=== PATIENT | male | born 1925 | race Caucasian/White ===

== ENCOUNTER 2016-09-21 16:58 | Inpatient (IN) | payer MEDICARE ==
[~2016-09-21] VITALS: Ht 177.8 cm; Wt 53.8 kg
[2016-09-21] VITALS: BP 103/85
--- NOTE | ~2016-09-21 | PR ---
[place], [place] PROGRESS NOTE NAME: [facility]IR[facility] BOGGS SR [id number] UNIT #: [id number] ROOM: [facility] DOCTOR: OPAL DURAN MD BIRTHDATE: [birth year] DOS: 09/23/2016 SUBJECTIVE: The patient is sitting up in bed. Denies any specific cardiac complaint. His daughter is on bedside. The patient denies any dizziness. No chest pain. No symptomatic palpitation. OBJECTIVE: VITAL SIGNS: Blood pressure 106/60, heart rate 60, respiratory rate of , temperature 97.4. NECK: Good upstroke, no bruit. HEART: S1, S2 with holosystolic murmur left lower sternal border. CHEST AND BACK: Mild kyphosis. LUNGS: Decreased air movement, but no wheezing or rales. ABDOMEN: Soft, nontender, present bowel sounds. EXTREMITIES: Lower extremities, no significant edema. LABORATORY DATA: White count 4.7, hemoglobin 10.2, potassium 3.8, creatinine 1.5, GFR is 42. ASSESSMENT AND PLAN: History of atrial fibrillation with evidence of early sick sinus syndrome that appeared to be so far asymptomatic. The patient recovered from the episode of following taking Lopressor, doing relatively well. Vital signs appeared to be stable. The patient did become bradycardic during the night, but blood pressure was stable throughout this episode. From the cardiac point of view, the patient can be transferred out of the unit, increase activity and consider rehab as an outpatient. I will be seeing the patient on p.r.n. basis or please recall if needed. OPAL DURAN MD CM:PNTRANS [id number] OPAL DURAN MD 09/23/162033 interface
--- NOTE | ~2016-09-21 | PR ---
[place], [place] PROGRESS NOTE NAME: SIRIA BOGGS SR [facility] #: [id number] UNIT #: [id number] ROOM: 409 DOCTOR: VANE HOFFMAN MD,PIERO BIRTHDATE: [birth year] DOS: 09/24/2016 PULMONARY PROGRESS NOTE SUBJECTIVE: The patient was seen and examined on 09/24/2016, has been noted awake and alert at this time. The patient was noted without any acute distress at this time. Coughing has been noted with intermittent sputum expectoration only scant amount, mostly noted chest congestion. Denies abdominal pain. The mental status has been noted much better since hospitalization for the patient today. OBJECTIVE: VITAL SIGNS: Normal temperature, respiratory rate 25, heart rate of 66, blood pressure 115/39. The pulse oxygen saturation 3 liters nasal cannula 97% saturation recorded. HEENT: Examination shows no acute change. NECK: Supple. CARDIOVASCULAR SYSTEM: S1, S2 audible. LUNGS: Decreased breath sounds still noted in the lungs bilaterally, scattered crackles, no wheezing. ABDOMEN: Soft, nontender. LABORATORY DATA: The culture of the sputum of the patient on shows light growth of Pseudomonas aeruginosa noted quite resistant to organism. The patient noted sensitive to the IV Zosyn and tobramycin, resistant to fluoroquinolones and other antibiotic. The BMP today: BUN 29, creatinine of 2.26. Albumin of 2.0. PT/INR was 1.8. CBC this morning, WBC count 3.5, hemoglobin 9.9, hematocrit 31.9 with a platelet count of 119,000. IMPRESSION: 1. The patient who has been currently noted with acute pneumonia, Pseudomonas aeruginosa with bilateral pleural fluids with second fluid overload, congestive heart failure of the patient. 2. End-stage renal failure, on hemodialysis. 3. Chronic anticoagulation with history of atrial fibrillation. 4. Leukopenia, most likely underlying acute infection. PLAN OF TREATMENT: Continuation of the current plan of management except adjustment of antibiotics based on the culture results. Discontinuation of the vancomycin and Levaquin. Continue the patient only on the IV Zosyn adjusted to the kidney functions. Usual care. Repeat chest x-ray of the patient to be done in the morning for the patient to assess the pleural fluid. Continue anticoagulation, maximize the Coumadin dose of the patient to achieve a therapeutic range of the patient's PT/INR. There will be no intervention for the pleural fluid at this time will be planned. [place], [place] PROGRESS NOTE NAME: SIRIA BOGGS SR UNIT #: [id number] ROOM: [facility] DOCTOR: PIERO GOLDSMITH MD BIRTHDATE: [birth year] PIERO CIFUENTES MD CM:NADEEM [id number] PIERO HOFFMAN MD 09/25/16 0017 interface
--- NOTE | ~2016-09-21 | PR ---
[place], [place] PROGRESS NOTE NAME: [facility]GG[facility] SR [facility] [id number] UNIT #: [id number] ROOM: 420 DOCTOR: CHRISTINA KAY DO BIRTHDATE: [birth year] DOS: 09/26/2016 INPATIENT PROGRESS NOTE SUBJECTIVE: The patient was seen and examined today at bedside. The patient is more somnolent today than yesterday. However, his daughter states that he had just finished physical therapy and was much more alert at that time and that he is likely tired right now. The patient is able to be aroused and upon questioning states he has no complaints at this time. OBJECTIVE: VITAL SIGNS: Temperature 97.0, pulse 52, respiratory rate 16, blood pressure 93/62, pulse ox 100% on 3 liters of O2 via nasal cannula. GENERAL: The patient is somnolent; however, he is easily aroused and is in no acute distress. HEAD: Head is normocephalic and atraumatic. No drainage is noted from the ears or the nares. There is temporal wasting noted. EYES: No lesions, ulcerations, or drainage is noted. ENT: No lesions, scars or masses. Nasal mucosa is moist. Nares are patent. Oral mucosa is moist. CARDIAC: No murmurs or gallops are noted. The patient is bradycardic and irregular and there is no edema noted in the bilateral lower extremities. LUNGS: The patient's breath sounds are diminished bilaterally and there are scattered rales noted with the worst being in the left lower lobe. ABDOMEN: Soft, nontender, nondistended. Positive bowel sounds are heard throughout. PEG tube is in place currently. EXTREMITIES: There is no erythema, edema, cyanosis or clubbing appreciated. SKIN: Warm and dry with no rashes, ulcerations or lesions. No indurations, nodules or tightening are noted. ASSESSMENT: 1. End-stage renal disease with the patient on dialysis. The patient had a session of dialysis yesterday while trying to remove a little bit of excess fluid from the patient to try to clear up the lungs. 2. Acute respiratory failure with hypoxia. 3. Pleural effusion. 4. Hypertension. 5. Gastroesophageal reflux disease. 6. Atrial fibrillation. PLAN: At this time, the patient will continue to have dialysis on his current Sunday, Sunday, Sunday schedule. The patient may be able to be discharged to home on Lasix 80 mg p.o. b.i.d. and he is to continue the midodrine at 10 mg before dialysis on Sunday, Sunday, and Sunday. From a Nephrology standpoint, the patient is stable to be discharged to home. CHRISTINA KAY DO [place], [place] PROGRESS NOTE NAME: SIRIA BOGGS SR UNIT #: [id number] ROOM: [facility] DOCTOR: CHRISTINA KAY DO BIRTHDATE: [birth year] HARI FLORENTINO DO CM:PNJONES [id number] CHRISTINA KAY DO 09/27/16299 interface
--- NOTE | ~2016-09-21 | PR ---
[place], [place] PROGRESS NOTE NAME: SIRIA BOGGS SR [facility] #: [id number] UNIT #: [id number] ROOM: 420 DOCTOR: VANE HOFFMAN MD,PIERO BIRTHDATE: [birth year] DOS: 09/25/2016 SUBJECTIVE: He has been comfortably resting in his bed without any distress. He has been continued diuretics. Also, planned for getting hemodialysis today for routine dialysis. He has not been noticed symptoms of chest pain. Chest congestions were noted partially decreased. OBJECTIVE: VITAL SIGNS: Normal temperature, respiratory rate 18, heart rate of 65 rather, blood pressure 92/51. Pulse oxygen saturation 3 liters nasal cannula 100% saturation recorded. HEENT: Examination shows head was atraumatic. Eyes nonicterus. NECK: Supple. CARDIOVASCULAR: S1, S2 is audible. LUNGS: The patient was noted without any crackles. The breath sounds was noted for this patient decreased in the lower lungs. ABDOMEN: Soft, nontender. EXTREMITIES: Shows new acute edema. LABORATORY DATA: In this patient, chest x-ray of the patient that was done for the patient this morning was reviewed personally. C-reactive was done for this patient that shows reduction of the previously noted infiltration of the lung and congestive heart failure with the bilateral pleural fluid and infiltration still noted in the left lung. The INR today was noted at 1.8. The CMP this morning, BUN 37, creatinine 2.90. Calcium noted elevated as 11.3. CBC this morning, WBC count 4.2, hemoglobin 10.9, hematocrit 34.7. IMPRESSION: 1. The patient, who has been currently noted with the acute pneumonia for this patient with superimposed congestive heart failure with bilateral pleural fluid, all improving gradually. 2. Hyperglycemia. The patient's etiology remains unclear. The patient has been assessed and managed by the Nephrology services for dialysis. Ionized calcium, patient will be obtained for the patient for more accurate assessment for this patient of the calcium actual level. The patient might have secondary hyperparathyroidism as well secondary to his end-stage renal failure as well. PLAN OF TREATMENT: Continuation of the bronchodilators, oxygen supplementation, diuretic therapy as a plan of management as in progress. Continue the anticoagulation, appears to adjust the Coumadin for this patient to maintain a therapeutic INR. Thoracentesis will not be needed. Continue to monitor the leukopenia as well. [place], [place] PROGRESS NOTE NAME: SIRIA BOGGS SR UNIT #: [id number] ROOM: 420 DOCTOR: PIERO GOLDSMITH MD BIRTHDATE: [birth year] PIERO CIFUENTES MD CM:PNTRANS [id number] PIERO HOFFMAN MD 09/26/16 1538 interface
--- NOTE | ~2016-09-21 | PR ---
[place], [place] PROGRESS NOTE NAME: SIRIA BOGGS SR UNIT #: [id number] ROOM: [facility] DOCTOR: PIERO GOLDSMITH MD BIRTHDATE: [birth year] DOS: 09/23/2016 PULMONARY PROGRESS NOTE SUBJECTIVE: He has been noted awake and alert, noted with severe chest congestion, inability to expectorate much sputum. The patient has been suctioned some phlegm by the nursing staff from his throat. He has not been noted with any symptoms of chest pain or any abdominal pain. The patient has been receiving hemodialysis for end-stage renal failure. OBJECTIVE: VITAL SIGNS: Shows a normal temperature, respiratory rate 20, heart rate 63, blood pressure 110/60-106/60. Intake is 1200, the output was 200 mL. Pulse oxygen saturation of the patient 3 liters nasal cannula 95% saturation recorded. HEENT: Examination shows no acute change. NECK: Supple. CARDIOVASCULAR SYSTEM: S1, S2 audible. LUNGS: Noted with decreased breath sounds, scattered crackles of the lungs bilaterally. ABDOMEN: Soft, nontender. LABORATORY DATA: INR today noted 1.7. Culture of the sputum preliminary showing normal yolanda from 09/22. Gram stain was noted with many white blood cells, few epithelial cells, rare gram-positive cocci in pairs. IMPRESSION: 1. The patient who has been currently noted with acute bacterial pneumonia for the patient noted with bilateral pleural fluid, leukopenia for this patient, persistent respiratory failure as well. Severe protein calorie malnutrition and overall loss of muscle mass. 2. Oropharyngeal dysphagia. 3. Anticoagulation. PLAN OF TREATMENT: The patient will be continued on current plan of management. He will be ordered Lasix to help improve some of the diuresis to improve his pleural fluid. The patient will be undergoing hemodialysis for the patient with maximum free water removal for the patient will be recommended. At this time, there was no plan of thoracentesis. [place], [place] PROGRESS NOTE NAME: SIRIA BOGGS SR UNIT #: [id number] ROOM: [facility] DOCTOR: PIERO GOLDSMITH MD BIRTHDATE: [birth year] PIREO CIFUENTES MD CM:PERTRANS [id number] PIERO HOFFMAN MD 09/23/16 2347 interface
--- NOTE | ~2016-09-21 | PN ---
[place], [place] PROGRESS NOTE [id number] #: [id number] ROOM: 420 DOCTOR: PIERO GOLDSMITH MD BIRTHDATE: [birth year] DATE: 09/26/16 SUBJECTIVE: The patient seen and examined on 09/26/2016. He has been using the BiPAP at this time. Shortness of breath of the patient has been improving, still noted with some chest congestion without any sputum expectoration. Denies symptoms of abdominal pain. OBJECTIVE: VITAL SIGNS: The patient showed normal temperature, respiratory rate 18, heart rate 81, blood pressure 93/62. The pulse oxygen saturation of the patient recorded as 96% saturation on 3 L nasal cannula. HEENT: Examination shows no acute change. CARDIOVASCULAR: S1, S2 audible. LUNGS: The patient was noted without any wheezing or crackles. Breaths are noted decreased in the lower portion of the lungs bilaterally. ABDOMEN: Soft, nontender. 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 CBC of this morning for this patient, WBC count 4.2, hemoglobin 10.9, hematocrit 33.8, and platelet count 126,000. BUN 19, creatinine 1.79. PT/INR today was noted as 1.9. IMPRESSION: Resolving acute congestive heart failure for this patient with bilateral pleural fluid, acute bacterial pneumonia, Pseudomonas aeruginosa, anticoagulation gradually improving and debility. PLAN OF TREATMENT: The patient was currently planned for discharge to the retirement facility for continued antibiotic administration and other treatment plan. In the meantime, other previous treatment, therapy plan and management to be continued. Usual care. Supportive therapy. PIERO GOLDSMITH MD CM:PNTRANS [id number] PIERO HOFFMAN MD 09/28/161753 ROZINA CAIN.R
--- NOTE | ~2016-09-21 | CON ---
[place], [place] REPORT OF CONSULTATION NAME: SIRIA BOGGS SR [facility] #: [id number] UNIT #: [id number] ROOM: [facility] DOCTOR: PIEOR GOLDSMITH MD BIRTHDATE: [birth year] DOS: 09/22/2016 REASON FOR CONSULTATION: To assess the patient for nonresolving acute pneumonia as an outpatient with persistent respiratory symptoms. HISTORY OF PRESENT ILLNESS: This is an 89-year-old male who has been known to me from the past. The patient has been currently residing at [facility], was seen in my office for assessment. The patient has been noted progressive increased symptoms of shortness of breath, chest congestion and cough. The patient has been brought to the hospital by the daughter. He has been noted with severe excessive chest congestion, noted very weak and feeble patient, inability to expectorate any sputum. As per daughter, the patient has been treated for the last 2 weeks with antibiotic, initially with Levaquin, 10-day course, and currently receiving the doxycycline 100 mg p.o. b.i.d. for the past 5 days and had not been responding to the treatment. He has been noted with severe chest congestion, coughing excessively several times in a day. He had not been expectorating any sputum. Noted severe weak and fatigued with the patient's inability to ambulate, remains on the wheelchair, bed bound. The patient was recommended hospitalization for further medical management. The chest x-ray was done for the patient in the office which showed triangular infiltration or density in the right upper lung with bilateral pleural fluid, greater on the left than the right side. The patient has not been noted with symptoms of hemoptysis. REVIEW OF SYSTEMS: CONSTITUTIONAL: Very limited because of the patient's current overall physical status. He has been reporting symptoms of severe weakness and fatigue. EYES: Denies any burning, redness, or tenderness. EARS, NOSE, THROAT SYMPTOMS: No sore throat, hoarseness, otalgia, or postnasal drainage. CARDIOVASCULAR: Denies angina pain. Was not noted with edema of the lower extremities. GASTROINTESTINAL: Denies dysphagia, nausea, vomiting, diarrhea, abdominal pain, hematemesis, melena, or hematochezia. SKIN: No lesions or rashes for this patient as well. MUSCULOSKELETAL: Progressive muscle mass loss in the patient was noted, but there was no acute joint pain, redness, or other problems of the skin such as any lesions or ulcers. CENTRAL NERVOUS SYSTEM: Severe generalized weakness and fatigue. Remaining systems were reviewed with the patient, they were noted all negative. PAST MEDICAL HISTORY: 1. Noted with a recent hospitalization in 08/2016 for management of acute pneumonia, acute respiratory failure as well as other medical problems. The patient was treated and discharged to the [facility] in 08/2016. 2. History of end-stage renal failure. The patient on hemodialysis 3 times a week. 3. 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 [place], [place] REPORT OF CONSULTATION NAME: AMBROSE SIRIA VILLANUEVA UNIT #: [id number] ROOM: [facility] DOCTOR: VANE HOFFMAN MD,[facility] BIRTHDATE: [birth year] 4. Chronic atrial fibrillation. 5. History of uncomplicated moderate persistent bronchial asthma. 6. History of prosthetic aortic valve replacement. The patient on anticoagulation long-term. 7. History of gout. 8. Gastroesophageal reflux. 9. Oropharyngeal dysphagia, currently has a PEG tube in place. 10. Severe protein-calorie malnutrition, which has been noted progressive. PAST SURGICAL HISTORY: 1. Tonsillectomy. 2. Aortic valve replacement. 3. Past endoscopy. 4. ORIF for the patient of the left hip fracture in 06/2016. 5. PEG tube insertion. 6. Fiberoptic bronchoscopy. 7. Thoracentesis and a chest tube insertion in a patient with chemical pleurodesis done for the patient on the left side in 2015. SOCIAL HISTORY: The patient is currently , has 2 children. He denies any history of alcohol use, or illicit drug use. Tobacco use noted since earlier age, a pack of cigarettes per day until 1984. FAMILY HISTORY: The patient's mother at 96 years old of natural causes. Father at age of 8484 years old from acute kidney injury as well. MEDICATIONS: Noted use of IV Levaquin, Zosyn and vancomycin, vitamin D, ferrous sulfate, potassium phosphate, B complex, omeprazole, Remeron, Coumadin, Imdur, midodrine, albuterol sulfate and other p.r.n. medications administration. DRUG ALLERGIES: Noted as allergy to the hydrocodone. PHYSICAL EXAMINATION: GENERAL: An 89-year-old white male currently noted to be awake and alert without any distress. VITAL SIGNS: Height for the patient recorded as 5 feet 9 inches, weight of ____ pounds. The patient's BMI 18.2. Normal temperature, respiratory rate of 14-22, heart rate 55-66 with mild bradycardia. The blood pressures ranged between 112/66 to 94/42. Previous weight for this patient noted 134 pounds in 08/2016 on admission. Current weight was noted as 124. HEENT: Loss of muscle mastication. Head was atraumatic. Eyes nonicterus. NECK: Supple. Oral mucosa moist. CARDIOVASCULAR: S1, S2 audible. LUNGS: Significantly reduced breaths are noted in the lungs bilaterally, scattered crackles. ABDOMEN: Noted soft, nontender. EXTREMITIES: Show loss of muscle mass. The patient without any edema, clubbing, cyanosis. Visible area of skin was noted with bruising of the skin in different areas, most likely medication related. CENTERAL NERVOUS SYSTEM: Unable to assess, but noticed severe general weakness. [place], [place] REPORT OF CONSULTATION NAME: AMBROSE SIRIA VILLANUEVA UNIT #: [id number] ROOM: [facility] DOCTOR: ROSE MARY GOLDSMITH MDM BIRTHDATE: [birth year] This seemed to not have any focal neurologic deficit. Further examination cannot be performed for this patient accurately. MUSCULOSKELETAL: No acute joint deformities. LABS: CBC that was done yesterday, WBC count 4.3, hemoglobin 10.7, hematocrit 33.7, platelet count was noted as normal. The CBC of the patient this morning, WBC count 4.2, hemoglobin 9.9, hematocrit 31.2, platelet count of 151,000. The BMP of patient that was done on 09/21/2016, BUN 30, creatinine 1.99. Glucose of 59. ProBNP was elevated. Calcium elevated at 11.2. The CMP of the patient this morning, glucose was noted still low 43, BUN 36, creatinine 2.29. The albumin noted at 2.8. Total protein of 6.1. TSH was normal and calcium was noted as normal. PT and PTT for the patient noted; INR today was 1.5, PTT of 34.4. Lactic acid noted as 1.9 for this patient that was done this morning. The chest x-ray of the patient that was done, one view, in the Emergency Room, noted with evidence of increasing pleural fluid on the right side with infiltration noted in the left lower lobe. IMPRESSION: 1. The patient who has been currently admitted to the hospital noted progressive acute pneumonia, not responding to oral antibiotics, currently started on broad spectrum intravenous antibiotics for the gram-positive and gram-negative organisms with possibility of aspiration pneumonia is very likely. 2. Very severe protein calorie malnutrition, progressive weight loss and/or debility and muscle deconditioning. 3. Acute patient with chronic hypoxic respiratory failure, treated with oxygen supplementation; same oxygen supplementation of 3 liters nasal cannula. 4. Pleural fluid related to underlying congestive heart failure. 5. Acute kidney injury for the patient was also noted. Prerenal component for this patient would be considered. 6. Leukopenia of the patient as well as anemia was noted, most likely medication induced or other etiologies have been considered. 7. Chronic anticoagulation noted, suboptimal. 8. Respiratory alkalosis noticed this is patient yesterday with arterial blood gas with pH of 7.51, pCO2 of 36, pO2 of 104 secondary to current ongoing pulmonary problem such as congestive heart failure. PLAN OF TREATMENT: Obtain the prealbumin level for the patient for the morning. Nutrition support, continue to optimize from the PEG tube with close monitoring for any aspiration. The patient has been transferred to Intensive Care Unit for medical floor with close monitoring because of full code status. Continuation of current antibiotic, monitor pleural fluid for the patient. In case of any respiratory distress or worsening for this patient, the patient will require thoracentesis. At that time, the anticoagulation for the patient might need to be placed on hold for thoracentesis. Monitor kidney function of the patient closely and management accordingly. Usual care. Other supportive therapy, plan of management. Oral care as well. The sputum for Gram stain culture as well. Thanks for allowing me to participate in the care of this patient. [place], [place] REPORT OF CONSULTATION NAME: SIRIA BOGGS SR UNIT #: [id number] ROOM: [facility]: [birth year] PIERO CIFUENTES MD CM:CONSTR:REPORT OF CONSULTATION 1225 09/23/16 0321 interface
[~2016-09-21 16:58] MED LIST: ACIDOPHILUS LA1 EACH PO; ACIDOPHILUS1 EAC2 PO; ALBUTEROL 3 ML 33 ML INH; ALBUTEROL2.5 MG/0.5 INH; ALLOPURINOL100 MG PO; AMOXICILLIN500 MG PO; APRESOLINE10 MG PO; ASPIRIN81 M1 PO; AZITHROMYCIN250 MG PO; Augmentin Xr 101 TER PO; CALCITRIOL0.25 MCG PO; COUMADIN1 M1 PO; COUMADIN2 MG PO; COUMADIN2.5 MG PO; COUMADIN3 M1 PO; Coumadin2 MG PO; Coumadin3 MG PEG; Coumadin5 MG PO; D-1000 185 MG-11 TAB PO; DOXEPIN HCL10 MG PO; DULCOLAX STOOL100 MG PO; DUONEB 3 MG/3 ML3 M1 NEB; FEOSOL,FER300 MG/5 M PEG; FEROSUL325 MG PO; FUROSEMIDE20 M1 PO; HYDROCODONE BIT1 T11 PO; IMDUR SA60 M1 PO; IRON 100 PLUS1 EACH PO; IRON PO; IRON325 M1 PO; IRON65 M1 PO; IRON90 MG PO; ISOSORBIDE DINIT5 M2 PEG; Ipratropium Brom3 ML INH; JANTOVEN1 MG PO; LASIX20 MG PO; LASIX40 MG PO; LEVAQUIN750 M1 PO; LEVAQUIN750 MG PO; LEVOFLOXACIN500 MG PO; Lopressor25 MG PEG; MAG-OX 400400 MG PO; MGO400 MG PO; MIDODRINE HCL5 M1 PEG; MIRALAX17 GM PO; MULTIPLE VITAMI1 CAP PO; NEBULIZER DEVI; NEPHRO-VITE VIT1 TAB PEG; NORVASC2.5 MG PO; OMEPRAZOLE D/R20 MG PEG; OMEPRAZOLE D/R20 MG PO; OMEPRAZOLE40 MG PO; PAIN RELIE160 MG/55 PEG; PERCOCET 325 MG1 TA2 PO; PHOS-NAK1 PDR PEG; PREDNISONE 1M1 MG/ML PEG; PREDNISONE10 M1 PO; PREDNISONE10 MG PO; PRILOSEC20 M1 PO; PROAIR HFA8.5 GM IH; Peridex 473 ML473 ML PO; REMERON30 M1 PEG; RITE AID BRAND650 MG PO; ROCALTROL0.25 MC2 PO; SODIUM BICARBO325 M1 PO; SODIUM BICARBO650 MG PO; STEROIDS PO; SYMBICORT1 AE1 INH; VITAMIN D PO; VITAMIN D2000 IU PO; VITAMIN D310000 UNIT PEG; VITAMIN D34000 UNIT PO; ZOVIRAX T; Zofran4 MG PO; [UNRECOGNIZED DRUG - OTHER] NEB
[2016-09-21 17:09] VITALS: BP 112/66
[2016-09-21 17:36] LABS: BASO % 0.2 % (0.0-1.0); EOS # 0.1 10*3/uL (0.0-0.4); EOS % 1.6 % (1.0-4.0); HEMATOCRIT 33.8 % (42.0-52.0); HEMOGLOBIN 10.7 g/dl (14.0-18.0); LYMPH # 0.7 10*3/uL (1.3-4.4); LYMPH % 16.7 % (27.0-41.0); MEAN CELL VOLUME 100.6 fl (80.0-94.0); MEAN CORPUSCULAR HGB 31.8 pg (27.0-31.0); MEAN CORPUSCULAR HGB CONC 31.7 g/dl (33.0-37.0); MEAN PLATELET VOLUME 11.6 fl (9.6-12.3); MONO # 0.5 10*3/uL (0.1-1.0); MONO % 11.7 % (3.0-9.0); NEUT % 69.8 % (47.0-73.0); PLATELET COUNT AUTOMATED 180 10*3/uL (130-400); RED BLOOD COUNT 3.36 10*6/uL (4.50-5.90); RED CELL DISTRI WIDTH 17.9 % (0-14.5); WHITE BLOOD COUNT 4.3 10*3/uL (4.8-10.8)
[2016-09-21 17:54] VITALS: BP 109/63
[2016-09-21 17:54] LABS: POTASSIUM 4.6 mmol/L (3.5-5.1)
[2016-09-21 18:01] LABS: TROPONIN I 0.028 ng/ml (<0.045)
[2016-09-21 20:00] VITALS: BP 100/54
[2016-09-21 21:34] LABS: ABG BASE EXCESS 5.8 mmol/L (-2.0-2.0); ABG CO2 CONTENT 30.1 mmol/L (23-27); ABG TEMPERATURE 97.9 F (98.0-99.0); ARTERIAL BLOOD GAS PH 7.511 (7.35-7.45)
[2016-09-21] MEDS ORDERED: NUTREN 2.0250 ML PEG (22:58)
[2016-09-22] VITALS (13 sets, daily range): BP systolic 89–134; BP diastolic 40–85
[2016-09-22 06:14] LABS: BASO % 0.5 % (0.0-1.0); EOS # 0.1 10*3/uL (0.0-0.4); EOS % 2.6 % (1.0-4.0); HEMATOCRIT 31.2 % (42.0-52.0); HEMOGLOBIN 9.9 g/dl (14.0-18.0); LYMPH # 0.5 10*3/uL (1.3-4.4); LYMPH % 12.9 % (27.0-41.0); MEAN CELL VOLUME 100.6 fl (80.0-94.0); MEAN CORPUSCULAR HGB 31.9 pg (27.0-31.0); MEAN CORPUSCULAR HGB CONC 31.7 g/dl (33.0-37.0); MEAN PLATELET VOLUME 11.7 fl (9.6-12.3); MONO # 0.6 10*3/uL (0.1-1.0); MONO % 15.3 % (3.0-9.0); NEUT # 2.9 10*3/uL (2.3-7.9); NEUT % 68.5 % (47.0-73.0); PLATELET COUNT AUTOMATED 151 10*3/uL (130-400); WHITE BLOOD COUNT 4.2 10*3/uL (4.8-10.8)
[2016-09-22 06:23] LABS: ALBUMIN 2.8 gm/dl (3.1-4.5); MAGNESIUM 1.7 mg/dL (1.5-2.1); PHOSPHOROUS 4.3 mg/dL (2.5-4.9); POTASSIUM 4.6 mmol/L (3.5-5.1); TOTAL PROTEIN 6.1 gm/dL (6.4-8.2)
[2016-09-22 06:33] LABS: THYROID STIM HORMONE (HS) 4.62 uIU/ml (0.358-4.75)
[2016-09-22 06:55] LABS: INTERNATIONAL NORM RATIO 1.5 (2.0-3.5); PROTHROMBIN TIME 16.7 SECONDS (9.0-12.4)
[2016-09-22] MEDS ORDERED: FEOSOL,FER300 MG/5 M PEG (10:56)
[2016-09-22] MEDS ORDERED: EMLA 2.5% 30GM30 GM PO (11:00)
[2016-09-22] MEDS ORDERED: MIDODRINE HCL5 M1 PEG (11:02)
[2016-09-22] MEDS ORDERED: VITAMIN D5000 UNIT PEG (11:09)
[2016-09-23] VITALS: BP 111/58
[2016-09-23 04:00] VITALS: BP 113/64
[2016-09-23 05:45] LABS: ALBUMIN 2.8 gm/dl (3.1-4.5); BILIRUBIN, TOTAL 0.8 mg/dl (0.2-1.0); POTASSIUM 3.8 mmol/L (3.5-5.1); TOTAL PROTEIN 6.3 gm/dL (6.4-8.2)
[2016-09-23 06:01] LABS: BASO % 0.6 % (0.0-1.0); EOS # 0.2 10*3/uL (0.0-0.4); EOS % 3.6 % (1.0-4.0); HEMOGLOBIN 10.2 g/dl (14.0-18.0); LYMPH # 0.7 10*3/uL (1.3-4.4); LYMPH % 14.1 % (27.0-41.0); MEAN CELL VOLUME 100.9 fl (80.0-94.0); MEAN CORPUSCULAR HGB 31.2 pg (27.0-31.0); MEAN CORPUSCULAR HGB CONC 30.9 g/dl (33.0-37.0); MEAN PLATELET VOLUME 11.6 fl (9.6-12.3); MONO # 0.7 10*3/uL (0.1-1.0); MONO % 14.1 % (3.0-9.0); NEUT # 3.2 10*3/uL (2.3-7.9); NEUT % 67.4 % (47.0-73.0); NUCLEATED RED BLOOD CELL 0.4 % (0.0-0.0); PLATELET COUNT AUTOMATED 157 10*3/uL (130-400); RED BLOOD COUNT 3.27 10*6/uL (4.50-5.90); RED CELL DISTRI WIDTH 18.6 % (0-14.5); WHITE BLOOD COUNT 4.7 10*3/uL (4.8-10.8)
[2016-09-23 06:15] LABS: INTERNATIONAL NORM RATIO 1.7 (2.0-3.5); PROTHROMBIN TIME 19.1 SECONDS (9.0-12.4)
[2016-09-23 08:00] VITALS: BP 106/60
[2016-09-23 12:00] VITALS: BP 110/60
[2016-09-23 16:00] VITALS: BP 100/57
[2016-09-23 20:00] VITALS: BP 108/57
[2016-09-24] VITALS: BP 134/60
[2016-09-24 04:00] VITALS: BP 154/64
[2016-09-24 06:01] LABS: BASO % 0.3 % (0.0-1.0); EOS # 0.2 10*3/uL (0.0-0.4); EOS % 4.3 % (1.0-4.0); HEMATOCRIT 31.9 % (42.0-52.0); HEMOGLOBIN 9.9 g/dl (14.0-18.0); LYMPH # 0.4 10*3/uL (1.3-4.4); LYMPH % 11.8 % (27.0-41.0); MEAN CELL VOLUME 100.6 fl (80.0-94.0); MEAN CORPUSCULAR HGB 31.2 pg (27.0-31.0); MEAN PLATELET VOLUME 11.5 fl (9.6-12.3); MONO # 0.4 10*3/uL (0.1-1.0); MONO % 12.7 % (3.0-9.0); NEUT # 2.4 10*3/uL (2.3-7.9); NEUT % 70.6 % (47.0-73.0); PLATELET COUNT AUTOMATED 119 10*3/uL (130-400); RED BLOOD COUNT 3.17 10*6/uL (4.50-5.90); RED CELL DISTRI WIDTH 18.7 % (0-14.5); WHITE BLOOD COUNT 3.5 10*3/uL (4.8-10.8)
[2016-09-24 06:36] LABS: ALBUMIN 2.8 gm/dl (3.1-4.5); BILIRUBIN, TOTAL 0.8 mg/dl (0.2-1.0); POTASSIUM 3.7 mmol/L (3.5-5.1); TOTAL PROTEIN 6.2 gm/dL (6.4-8.2)
[2016-09-24 06:39] LABS: INTERNATIONAL NORM RATIO 1.8 (2.0-3.5); PROTHROMBIN TIME 19.5 SECONDS (9.0-12.4)
[2016-09-24 08:00] VITALS: BP 115/39
[2016-09-24 12:00] VITALS: BP 107/63
[2016-09-24 15:28] VITALS: BP 117/59
[2016-09-24 20:00] VITALS: BP 128/76
[2016-09-25] VITALS: BP 107/66
[2016-09-25 06:12] LABS: BASO % 0.2 % (0.0-1.0); EOS # 0.2 10*3/uL (0.0-0.4); EOS % 3.8 % (1.0-4.0); HEMATOCRIT 34.7 % (42.0-52.0); HEMOGLOBIN 10.9 g/dl (14.0-18.0); LYMPH # 0.6 10*3/uL (1.3-4.4); LYMPH % 13.4 % (27.0-41.0); MEAN CORPUSCULAR HGB 31.4 pg (27.0-31.0); MEAN CORPUSCULAR HGB CONC 31.4 g/dl (33.0-37.0); MEAN PLATELET VOLUME 11.7 fl (9.6-12.3); MONO # 0.4 10*3/uL (0.1-1.0); MONO % 9.8 % (3.0-9.0); NEUT % 72.6 % (47.0-73.0); PLATELET COUNT AUTOMATED 140 10*3/uL (130-400); RED BLOOD COUNT 3.47 10*6/uL (4.50-5.90); WHITE BLOOD COUNT 4.2 10*3/uL (4.8-10.8)
[2016-09-25 06:22] LABS: ALBUMIN 2.9 gm/dl (3.1-4.5); BILIRUBIN, TOTAL 0.9 mg/dl (0.2-1.0); POTASSIUM 4.3 mmol/L (3.5-5.1); TOTAL PROTEIN 6.5 gm/dL (6.4-8.2)
[2016-09-25 06:43] LABS: INTERNATIONAL NORM RATIO 1.8 (2.0-3.5)
[2016-09-25 08:00] VITALS: BP 93/51
[2016-09-25 12:00] VITALS: BP 98/49
[2016-09-25 20:00] VITALS: BP 109/48
[2016-09-26 00:47] VITALS: BP 106/49
[2016-09-26 06:37] LABS: EOS # 0.2 10*3/uL (0.0-0.4); EOS % 5.3 % (1.0-4.0); HEMATOCRIT 33.8 % (42.0-52.0); HEMOGLOBIN 10.9 g/dl (14.0-18.0); LYMPH # 0.6 10*3/uL (1.3-4.4); LYMPH % 15.1 % (27.0-41.0); MEAN CELL VOLUME 99.1 fl (80.0-94.0); MEAN CORPUSCULAR HGB CONC 32.2 g/dl (33.0-37.0); MEAN PLATELET VOLUME 11.7 fl (9.6-12.3); MONO # 0.5 10*3/uL (0.1-1.0); MONO % 11.8 % (3.0-9.0); NEUT # 2.8 10*3/uL (2.3-7.9); NEUT % 67.6 % (47.0-73.0); PLATELET COUNT AUTOMATED 126 10*3/uL (130-400); RED BLOOD COUNT 3.41 10*6/uL (4.50-5.90); RED CELL DISTRI WIDTH 18.9 % (0-14.5); WHITE BLOOD COUNT 4.2 10*3/uL (4.8-10.8)
[2016-09-26 06:48] LABS: ALBUMIN 2.7 gm/dl (3.1-4.5); BILIRUBIN, TOTAL 0.9 mg/dl (0.2-1.0); TOTAL PROTEIN 6.4 gm/dL (6.4-8.2)
[2016-09-26 07:19] LABS: INTERNATIONAL NORM RATIO 1.9 (2.0-3.5); PROTHROMBIN TIME 20.7 SECONDS (9.0-12.4)
[2016-09-26 08:00] VITALS: BP 98/82
[2016-09-26 12:00] VITALS: BP 93/62
[2016-09-26] MEDS ORDERED: COUMADIN4 M2 PO (13:53)
[2016-09-26] MEDS ORDERED: Lasix80 MG PO (14:24)
== END 2016-09-26 17:56 | DRG 177 ==
LOC: ED 16:58 → 4E 18:20 → EDHOLD 18:20 → ICCU 18:20 → 5E 18:48 → ICCU 09-22 09:41 → 4E 09-24 17:44
PROVIDERS: Emergency Medicine; Internal Medicine; Internal Medicine Critical Care Medicine; Internal Medicine Hospice and Palliative Medicine; Student in an Organized Health Care Education/Training Program
PROC: 5A1D60Z (ICD-10-PCS; principal; 2016-09-22)
PROC: 5A09357 Assistance with Respiratory Ventilation, Less than 24 Consecutive Hours, Continuous Positive Airway Pressure (ICD-10-PCS; principal; 2016-09-22)
DX: J15.1 Pneumonia due to Pseudomonas (principal); N18.6 End stage renal disease; J96.21 Acute and chronic respiratory failure with hypoxia; E43 Unspecified severe protein-calorie malnutrition; I13.2 Hypertensive heart and chronic kidney disease with heart failure and with stage 5 chronic kidney disease, or end stage renal disease; N17.9 Acute kidney failure, unspecified; D68.59 Other primary thrombophilia; E87.3 Alkalosis; I50.32 Chronic diastolic (congestive) heart failure; Z68.1 Body mass index [BMI] 19.9 or less, adult; I27.2 Other secondary pulmonary hypertension; L11.1 Transient acantholytic dermatosis [Grover]; M19.90 Unspecified osteoarthritis, unspecified site; K21.9 Gastro-esophageal reflux disease without esophagitis; M10.9 Gout, unspecified; D53.9 Nutritional anemia, unspecified; I35.0 Nonrheumatic aortic (valve) stenosis; I34.0 Nonrheumatic mitral (valve) insufficiency; E16.2 Hypoglycemia, unspecified; I49.5 Sick sinus syndrome; I48.2 Chronic atrial fibrillation; D72.819 Decreased white blood cell count, unspecified; Z79.01 Long term (current) use of anticoagulants; Z87.891 Personal history of nicotine dependence; Z84.1 Family history of disorders of kidney and ureter; Z99.2 Dependence on renal dialysis; Z88.6 Allergy status to analgesic agent; Z93.1 Gastrostomy status; Z79.1 Long term (current) use of non-steroidal anti-inflammatories (NSAID); Z79.51 Long term (current) use of inhaled steroids; Z79.899 Other long term (current) drug therapy; J69.0 Pneumonitis due to inhalation of food and vomit

== ENCOUNTER → 2016-10-03 | Outpatient (CLI) | payer MEDICARE ==
[~2016-10-03] MED LIST changes: +COUMADIN4 M2 PO; +EMLA 2.5% 30GM30 GM PO; +Lasix80 MG PO; +NUTREN 2.0250 ML PEG; +VITAMIN D5000 UNIT PEG
[2016-10-03 12:23] LABS: INTERNATIONAL NORM RATIO 1.4 (2.0-3.5); PROTHROMBIN TIME 15.6 SECONDS (9.0-12.4)
[2016-10-03 13:51] VITALS: BP 107/66
== END | disposition home or self-care (01) ==
LOC: PICC 11:17
PROVIDERS: Internal Medicine
DX: Z45.2 Encounter for adjustment and management of vascular access device (principal); S22.41XA Multiple fractures of ribs, right side, initial encounter for closed fracture; M47.894 Other spondylosis, thoracic region; J43.8 Other emphysema; X58.XXXA Exposure to other specified factors, initial encounter; Y93.89 Activity, other specified; Y92.89 Other specified places as the place of occurrence of the external cause; Y99.8 Other external cause status

== ENCOUNTER 2016-10-10 08:45 | Inpatient (IN) | payer MEDICARE ==
[~2016-10-10] VITALS: Ht 182.8 cm; Wt 51.8 kg
--- NOTE | ~2016-10-10 | CON ---
[place], [place] REPORT OF CONSULTATION NAME: SIRIA BOGGS SR UNIT #: [id number] ROOM: 526 DOCTOR: PIERO GOLDSMITH MD BIRTHDATE: [birth year] DOS: 10/12/2016 PULMONARY CONSULTATION EVALUATION AND MANAGEMENT REASON FOR CONSULTATION: Assess the patient for ongoing acute respiratory complaints for this patient with the possibility of acute pneumonia. HISTORY OF PRESENT ILLNESS: This is an 89 years old white male who has been known to me from the past. The patient has been currently treated at [facility] previously treated for acute pneumonia was improving. He had been noted the patient with change in mental status with confusional status. He has been sent to the Emergency Room for assessment of current changes in the mental status. The patient was noted with significant lethargy for this patient in the morning. He has not been noted with symptoms of chest pain, coughing or any sputum expectoration. The patient has been receiving IV Zosyn for the patient for the treatment of acute pneumonia at the [facility]. The patient has been assessed in the Emergency Room for this patient and currently being hospitalized for further assessment, change in the mental status for the patient at this time seemed to be improved. The patient appeared to be more awake, alert, oriented at this time responding to the treatment. REVIEW OF SYSTEMS: CONSTITUTIONAL SYMPTOMS: The patient is somewhat poor historian, but does complain of fatigue and tiredness. Denies symptoms of fever or chills. EYES: Denies any burning, redness, or tenderness. EARS, NOSE, THROAT SYMPTOMS: No sore throat, hoarseness, otalgia, postnasal drainage. CARDIOVASCULAR SYSTEM: Denies anginal pain, edema of the lower extremities or palpitations. GASTROINTESTINAL SYMPTOMS: The patient noted chronic oropharyngeal dysphagia, currently has a PEG tube in place for the nutrition support. There were no symptoms of heartburns. Denies hematemesis or melena. GENITOURINARY SYMPTOMS: Denies dysuria, suprapubic pain, hematuria or flank pain. The patient had been noted with end-stage renal failure for this patient receiving dialysis 3 times a week. SKIN: Bruising for this patient was noted in the skin for the patient medication related in different parts of the body including the extremities. CENTRAL NERVOUS SYSTEM: Denies focal neurologic deficit. Remaining systems were reviewed with the patient, they were noted all negative. PAST MEDICAL HISTORY: 1. The patient with congestive heart failure for this patient with the diastolic dysfunction of the patient treated with medical management. 2. History of aortic valve replacement. 3. Chronic anticoagulation. 4. End-stage renal failure, on hemodialysis. 5. Recurrent left pleural fluid, which is noted nonmalignant. The chemical pleurodesis done in 2016. 6. Chronic atrial fibrillation. [place], [place] REPORT OF CONSULTATION NAME: SIRIA BOGGS SR UNIT #: [id number] ROOM: 526 DOCTOR: VANE HOFFMAN MD,PIERO BIRTHDATE: [birth year] 7. Uncomplicated moderate persistent bronchial asthma. 8. Gout. 9. Oropharyngeal dysphagia. 10. Gastroesophageal reflux. 11. Severe protein-calorie malnutrition, which has been resolving. PAST SURGICAL HISTORY: 1. Tonsillectomy. 2. Aortic valve replacement. 3. Past endoscopy. 4. ORIF of the left hip in June 2016 in [facility] in [place], [place]. 5. PEG tube insertion. 6. Fiberoptic bronchoscopy. 7. Thoracentesis of the patient which was done, recurrent for this patient on the left side followed by chest tube insertion and chemical pleurodesis for the patient in 2016. SOCIAL HISTORY: The patient is , has 2 children, currently a resident of a assisted. Denies any history of alcohol use, illicit drug use. Tobacco use was noted since younger age, a pack of cigarettes per day until 1984. FAMILY HISTORY: Father at age 8484 years old from acute kidney injury complications. The mother at the age of 9696 years old from natural causes. MEDICATIONS: Current administered medication were noted as use of midodrine, vitamin B complex, Lovenox for DVT prophylaxis, omeprazole, Remeron, IV Solu-Medrol, Coumadin, Lasix, Imdur, DuoNeb, IV Zosyn, Levaquin, vancomycin and other p.r.n. medications administration. DRUG ALLERGIES: Noted with allergy to the hydrocodone causing shakes. PHYSICAL EXAMINATION: GENERAL: This is an elderly 89 years old white male currently noted fully awake and alert, oriented for this patient at this time without any distress. The height for the patient noted as 6 feet, weight of 114 pounds, BMI 15.5. VITAL SIGNS: Normal temperature, respiratory rate 18-22, heart rate 55-67, blood pressure 82/43-105/70. Pulse oxygen saturation of the patient noted on room air 94% saturation. HEENT: Examination shows head was atraumatic. Eyes nonicterus. NECK: Supple. CARDIOVASCULAR SYSTEM: S1, S2 is audible. LUNGS: The patient noted with somewhat decreased breaths in the lower portion of the lungs. There was no wheezing or crackles heard. ABDOMEN: Soft, nontender, bowel sounds present. CENTRAL NERVOUS SYSTEM: The patient was noted with loss of muscle mass, but there were no focal deficit. Cranial nerves 2-12 intact. MUSCULOSKELETAL SYMPTOMS: No acute deformities. SKIN: No lesions or rashes. LABORATORY DATA: CBC of the patient on 10/10/2016, WBC count 2.7, hemoglobin [place], [place] REPORT OF CONSULTATION NAME: SIRIA BOGGS SR UNIT #: [id number] ROOM: 526 DOCTOR: VANE HOFFMAN MDPIERO BIRTHDATE: [birth year] 12.4, hematocrit 38.1, platelet count 119,000. PT/INR of the patient on 10/10/2016 was 1.7, PTT 35. CMP of the patient on 10/10/2016, creatinine 2.04, BUN was normal. CK-MB, troponin additional sets were repeated for the patient on the and the were all noted normal. The CBC of patient that was done this morning showed WBC count 4.3, hemoglobin 9.5, hematocrit 28.9, platelet count 103,000. INR today noted 3.4, which is therapeutic. BMP this morning, BUN 21, creatinine 1.43. Blood culture from the 2nd of this month showed no bacterial growth with final culture results were pending. Chest x-ray of the patient that was done for this patient on admission on 10/10/2016 patient shows evidence of interstitial edema, congestive heart failure finding and pleural fluid. The pleural fluid of the patient and the aeration of the patient has been improved significantly as compared with the previous chest x-ray on admission in September 2016 comparison. IMPRESSION: 1. Change in mental status for the patient, which would be considered most likely related to the congestive heart failure, which is noted recurrent for this patient with the pleural fluid for the patient formation. Less likely to be from acute pneumonia at the present time. 2. The patient with pancytopenia for this patient, which has been noted for the patient. Etiology is unclear, may be medication related or other etiologies with malfunction of the bone marrow would be considered. 3. History of chronic hypoxic and hypercapnic respiratory failure, known. 4. Protein calorie malnutrition. 5. Bronchial asthma was noted with acute exacerbation recently as well on this admission. PLAN OF TREATMENT: Antibiotic spectrum of the patient certainly will be reduced for this patient as there is a low suspicion of ongoing pulmonary infection. The patient will be continued on Zosyn as previously administered. Continuation of the medical management of the congestive heart failure with hemodialysis, removal of free water as much as possible as well as continued use of the diuretics. Obtain a prealbumin level for the patient to assess and address the malnutrition status. Continue maximal nutritional support from the PEG tube. Monitoring of the mental status of the patient closely as well. Further treatment changes will be done based on progression of the illness. The pleural fluid noted small at this time would not require any intervention such as thoracentesis. Continue monitoring the PT/INR for this patient as the INR would get high for the patient because of drug interaction, currently noted in the upper normal therapeutic range. Other supportive therapy, plan of management as well. Reduce the Solu-Medrol dose for the patient since the wheezing of the patient has been improving at the present time since admission. Other usual treatment and therapies for the patient to be addressed with the patient based on progression of the illness. The patient noted with orthostatic hypotension for this patient, which has been addressed for this patient with use of midodrine. Continue with the BiPAP use for the patient for the medical management of hypercapnic and hypoxic respiratory failure. Aspiration precautions. Thanks for allowing me to participate in the care of this patient. [place], [place] REPORT OF CONSULTATION NAME: SIRIA BOGGS SR UNIT #: [id number] ROOM: 526 DOCTOR: PIERO GOLDSMITH MD BIRTHDATE: [birth year] PIERO CIFUENTES MD CM:CONSTR:REPORT OF CONSULTATION 1239 10/13/16 0252 interface
[2016-10-10 08:45] VITALS: BP 111/60
[~2016-10-10 08:45] MED LIST changes: -EMLA 2.5% 30GM30 GM PO; +EMLA 2.5% 30GM30 GM T; +MIDODRINE HCL5 M1 PO
[2016-10-10 09:41] LABS: BASO % 0.4 % (0.0-1.0); EOS # 0.1 10*3/uL (0.0-0.4); EOS % 3.7 % (1.0-4.0); HEMATOCRIT 38.1 % (42.0-52.0); HEMOGLOBIN 12.4 g/dl (14.0-18.0); LYMPH # 0.4 10*3/uL (1.3-4.4); LYMPH % 15.9 % (27.0-41.0); MEAN CORPUSCULAR HGB 32.2 pg (27.0-31.0); MEAN CORPUSCULAR HGB CONC 32.5 g/dl (33.0-37.0); MEAN PLATELET VOLUME 10.6 fl (9.6-12.3); MONO # 0.3 10*3/uL (0.1-1.0); MONO % 11.1 % (3.0-9.0); NEUT # 1.9 10*3/uL (2.3-7.9); NEUT % 68.9 % (47.0-73.0); PLATELET COUNT AUTOMATED 119 10*3/uL (130-400); RED BLOOD COUNT 3.85 10*6/uL (4.50-5.90); RED CELL DISTRI WIDTH 17.6 % (0-14.5); WHITE BLOOD COUNT 2.7 10*3/uL (4.8-10.8)
[2016-10-10 09:50] LABS: INTERNATIONAL NORM RATIO 1.7 (2.0-3.5); PROTHROMBIN TIME 18.7 SECONDS (9.0-12.4)
[2016-10-10 09:51] LABS: BILIRUBIN NEGATIVE (NEGATIVE); BLOOD TRACE-LYSED (NEGATIVE); CLARITY CLEAR (CLEAR); COLOR YELLOW (YELLOW); GLUCOSE NEGATIVE (NEGATIVE); KETONE NEGATIVE (NEGATIVE); LEUKO ESTERASE NEGATIVE (NEGATIVE); NITRITE NEGATIVE (NEGATIVE); PROTEIN 1+ (NEGATIVE); SPECIFIC GRAVITY <= 1.005 (1.005-1.030); UROBILINOGEN 0.2 E.U./dl (0.2-1.0)
[2016-10-10 09:57] LABS: ALBUMIN 3.2 gm/dl (3.1-4.5); BILIRUBIN, TOTAL 0.7 mg/dl (0.2-1.0); C-REACTIVE PROTEIN 2.18 MG/DL (0-0.3); CKMB 1.3 ng/ml (0.5-3.6); MAGNESIUM 2.3 mg/dL (1.5-2.1); POTASSIUM 3.8 mmol/L (3.5-5.1); TOTAL PROTEIN 7.4 gm/dL (6.4-8.2); TROPONIN I 0.021 ng/ml (<0.045)
[2016-10-10 10:03] LABS: EPITHELIAL CELLS 0-2; HYALINE CAST 0-2; RBC 0-2 rbc/hpf (0-2); URINE REFLEX COMMENT YES (NO)
[2016-10-10 10:35] VITALS: BP 111/63
[2016-10-10] MEDS ORDERED: COUMADIN4 M2 PO (11:01)
[2016-10-10] MEDS ORDERED: ZOSYN 50 ML50 ML IV (11:02)
[2016-10-10] MEDS ORDERED: LASIX80 MG GT (11:06)
[2016-10-10] MEDS ORDERED: BREO ELLIPTA 21 EACH IH ×2 (11:14→12:31)
[2016-10-10] MEDS ORDERED: DUONEB 3 MG/3 ML3 M1 PO (11:15)
[2016-10-10 11:45] VITALS: BP 87/40
[2016-10-10 12:00] VITALS: BP 87/40
[2016-10-10] MEDS ORDERED: VENTOLIN 02.5 MG/3 M INH (12:31)
[2016-10-10] MEDS ORDERED: DUONEB 3 MG/3 ML3 M1 INH (12:32)
[2016-10-10 12:46] LABS: CKMB 1.3 ng/ml (0.5-3.6); TROPONIN I 0.021 ng/ml (<0.045)
[2016-10-10 16:00] VITALS: BP 114/63
[2016-10-10 18:32] LABS: CKMB 1.7 ng/ml (0.5-3.6); TROPONIN I 0.021 ng/ml (<0.045)
[2016-10-10 20:00] VITALS: BP 96/63
[2016-10-11] VITALS: BP 117/55
[2016-10-11 00:41] LABS: CKMB 1.3 ng/ml (0.5-3.6); TROPONIN I 0.027 ng/ml (<0.045)
[2016-10-11 06:09] LABS: MEAN CELL VOLUME 96.3 fl (80.0-94.0); MEAN CORPUSCULAR HGB CONC 33.2 g/dl (33.0-37.0); PLATELET COUNT AUTOMATED 98 10*3/uL (130-400); RED BLOOD COUNT 3.22 10*6/uL (4.50-5.90); RED CELL DISTRI WIDTH 17.3 % (0-14.5)
[2016-10-11 06:13] LABS: HEMOGLOBIN 10.3 g/dl (14.0-18.0)
[2016-10-11 06:32] LABS: ALBUMIN 2.5 gm/dl (3.1-4.5); BILIRUBIN, TOTAL 0.7 mg/dl (0.2-1.0); FREE T4 1.02 ng/dl (0.76-1.46); INTERNATIONAL NORM RATIO 2.5 (2.0-3.5); MAGNESIUM 1.8 mg/dL (1.5-2.1); POTASSIUM 3.4 mmol/L (3.5-5.1); PROTHROMBIN TIME 28.2 SECONDS (9.0-12.4); TOTAL PROTEIN 5.9 gm/dL (6.4-8.2)
[2016-10-11 06:37] LABS: THYROID STIM HORMONE (HS) 1.75 uIU/ml (0.358-4.75)
[2016-10-11 06:43] LABS: EOSINOPHILS 1 % (1-4); LYMPHOCYTE # 0.2 10*3/uL (1.3-4.4); NEUTROPHIL # 1.5 10*3/uL (2.3-7.9); NEUTROPHILS 88 % (47-73); PLATELET SUFFICIENCY LOW (NORMAL); TOTAL CELLS COUNTED 100 #CELLS
[2016-10-11 06:44] LABS: WHITE BLOOD COUNT 1.7 10*3/uL (4.8-10.8)
[2016-10-11 08:00] VITALS: BP 144/91
[2016-10-11 12:00] VITALS: BP 151/66
[2016-10-11 16:00] VITALS: BP 130/65
[2016-10-11 16:41] VITALS: BP 135/85
[2016-10-11 20:00] VITALS: BP 82/43
[2016-10-12] VITALS: BP 109/65
[2016-10-12 04:00] VITALS: BP 119/65
[2016-10-12 07:12] LABS: EOS % 0.5 % (1.0-4.0); HEMATOCRIT 28.9 % (42.0-52.0); HEMOGLOBIN 9.5 g/dl (14.0-18.0); LYMPH # 0.3 10*3/uL (1.3-4.4); LYMPH % 7.7 % (27.0-41.0); MEAN CELL VOLUME 97.3 fl (80.0-94.0); MEAN CORPUSCULAR HGB CONC 32.9 g/dl (33.0-37.0); MEAN PLATELET VOLUME 10.5 fl (9.6-12.3); MONO # 0.4 10*3/uL (0.1-1.0); MONO % 8.7 % (3.0-9.0); NEUT # 3.5 10*3/uL (2.3-7.9); NEUT % 82.9 % (47.0-73.0); PLATELET COUNT AUTOMATED 103 10*3/uL (130-400); RED BLOOD COUNT 2.97 10*6/uL (4.50-5.90); RED CELL DISTRI WIDTH 17.6 % (0-14.5); WHITE BLOOD COUNT 4.3 10*3/uL (4.8-10.8)
[2016-10-12 07:40] LABS: INTERNATIONAL NORM RATIO 3.4 (2.0-3.5); PROTHROMBIN TIME 38.4 SECONDS (9.0-12.4)
[2016-10-12 08:00] VITALS: BP 108/66
[2016-10-12 11:51] VITALS: BP 105/70
[2016-10-12] MEDS ORDERED: LEVAQUIN750 M1 PO (13:27)
[2016-10-12 15:10] LABS: A/G RATIO 1.4 (0.7-1.7); ALBUMIN 3.3 g/dL (2.9-4.4); ALPHA-1-GLOBULIN 0.3 g/dL (0.0-0.4); BETA GLOBULIN 0.5 g/dL (0.7-1.3); GLOBULIN, TOTAL 2.3 g/dL (2.2-3.9); M-SPIKE Not Observed g/dL (Not Observed); PE INTERPRETATION Comment: (.); TOTAL PROTEIN, SERUM 5.6 g/dL (6.0-8.5)
== END 2016-10-12 15:00 | disposition other institution (70) | DRG 177 ==
LOC: ED 08:45 → 5E 10:16 → EDHOLD 10:16 → 5E 10:35
PROVIDERS: Emergency Medicine; Internal Medicine; Internal Medicine Nephrology
PROC: 5A1D00Z (ICD-10-PCS; principal; 2016-10-11)
DX: J15.6 Pneumonia due to other Gram-negative bacteria (principal); G93.41 Metabolic encephalopathy; I13.2 Hypertensive heart and chronic kidney disease with heart failure and with stage 5 chronic kidney disease, or end stage renal disease; J96.10 Chronic respiratory failure, unspecified whether with hypoxia or hypercapnia; D61.818 Other pancytopenia; N18.6 End stage renal disease; E46 Unspecified protein-calorie malnutrition; J45.901 Unspecified asthma with (acute) exacerbation; Z68.1 Body mass index [BMI] 19.9 or less, adult; I48.2 Chronic atrial fibrillation; D63.8 Anemia in other chronic diseases classified elsewhere; M19.91 Primary osteoarthritis, unspecified site; L11.1 Transient acantholytic dermatosis [Grover]; M1A.9XX0 Chronic gout, unspecified, without tophus (tophi); K21.9 Gastro-esophageal reflux disease without esophagitis; I50.9 Heart failure, unspecified; Z95.4 Presence of other heart-valve replacement; Z99.2 Dependence on renal dialysis; Z84.1 Family history of disorders of kidney and ureter; Z88.8 Allergy status to other drugs, medicaments and biological substances; Z79.01 Long term (current) use of anticoagulants; Z79.899 Other long term (current) drug therapy; Z87.891 Personal history of nicotine dependence

== ENCOUNTER 2016-10-19 23:43 | Emergency (ER) | payer MEDICARE ==
[~2016-10-19] VITALS: Ht 175.2 cm; Wt 49.9 kg
[~2016-10-19 23:43] MED LIST changes: +BREO ELLIPTA 21 EACH IH; +DUONEB 3 MG/3 ML3 M1 INH; +DUONEB 3 MG/3 ML3 M1 PO; +LASIX80 MG GT; +VENTOLIN 02.5 MG/3 M INH; +ZOSYN 50 ML50 ML IV
[2016-10-20] MEDS ORDERED: ACETAMINOPHEN325 M2 PEG (00:38)
[2016-10-20 04:38] VITALS: BP 98/60
== END 2016-10-20 05:14 | disposition home or self-care (01) ==
LOC: ED 23:43
DX: T85.848A Pain due to other internal prosthetic devices, implants and grafts, initial encounter (principal); I48.91 Unspecified atrial fibrillation; I50.9 Heart failure, unspecified; D64.9 Anemia, unspecified; M19.90 Unspecified osteoarthritis, unspecified site; I12.0 Hypertensive chronic kidney disease with stage 5 chronic kidney disease or end stage renal disease; N18.6 End stage renal disease; K21.9 Gastro-esophageal reflux disease without esophagitis; M10.9 Gout, unspecified; I35.0 Nonrheumatic aortic (valve) stenosis; Z95.4 Presence of other heart-valve replacement; Z87.891 Personal history of nicotine dependence; Z99.2 Dependence on renal dialysis; Z98.890 Other specified postprocedural states; Z90.89 Acquired absence of other organs; Z79.899 Other long term (current) drug therapy; Z88.5 Allergy status to narcotic agent; Z88.8 Allergy status to other drugs, medicaments and biological substances; Z79.01 Long term (current) use of anticoagulants; Y92.9 Unspecified place or not applicable

== ENCOUNTER → 2016-11-30 | Outpatient (CLI) | payer MEDICARE ==
[~2016-11-30] MED LIST changes: +ACETAMINOPHEN325 M2 PEG
--- NOTE | ~2016-11-30 | PROC NOTE ---
[place], [place] PROCEDURE NOTE NAME: [id number] #: [id number] ROOM: DOCTOR: MARYLOU YOO BIRTHDATE: [birth year] DOS: 11/30/2016 MODIFIED BARIUM SWALLOW. DOCTOR: Dr. Montalvo. RADIOLOGIST: Dr. Hager. BACKGROUND INFORMATION: The patient. an 89-year-old male was seen for modified barium swallow. This test was ordered to determine candidacy for resumption of p.o. feeding. This patient has been n.p.o. and fed by tube since June 2016. The patient's son accompanied him for the assessment and assisted in providing case history information. They do not report an illness that led to need for PEG tube. The patient was reported with kidney disease with need for dialysis as well as high blood pressure. For today's assessment, the patient was very alert and able to follow all commands. He was receiving oxygen via nasal cannula. Congested respirations were displayed. Oral peripheral examination revealed presence of top denture with adequate fit reported. The patient presented with bottom natural teeth; however, back teeth were missing. Lingual, labial, and buccal skills were within normal limits in terms of strength, range of motion, and coordination. The patient was able to volitionally cough and swallow. METHODS AND MATERIALS USED FOR THE EXAM: The patient was positioned in the lateral plane and the examination was viewed under fluoroscopy. The patient was presented with a variety of consistencies to assess swallowing skills including applesauce mixed with barium presented in half teaspoon amounts, barium-coated banana presented in bite sized piece and thin and nectar thick barium taken by cup in single sip size amount. ORAL PHASE: The patient achieved adequate labial seal around cup and spoon with no anterior loss. Bolus formation and transit were adequate with all consistencies. Munch type chewing was displayed with the soft solid due to dentition. Tongue to palate contact was within normal limits. Tongue retraction was within normal limits. Velar functioning was within normal limits with no nasal regurgitation. PHARYNGEAL PHASE: Unremarkable. ESOPHAGEAL PHASE: This phase of the swallow was not formally assessed during this examination. IMPRESSIONS AND RECOMMENDATIONS: Based upon assessment results, this 89-year-old patient displayed safe swallowing skills for pureed, soft solid and thin liquid consistencies. No penetration or aspiration was displayed with any consistency and there was no residue in the pharynx. The patient displayed a munch type chew with the soft solid due to dentition. He is recommended a soft diet and thin liquids with use of safety strategies such as small bites and sips, upright positioning for meals and chewing thoroughly. Followup therapy is [place], [place] PROCEDURE NOTE NAME: SIRIA BOGGS SR UNIT #: [id number] ROOM: DOCTOR: MARYLOU YOO BIRTHDATE: [birth year] recommended at the long-term to ensure safety with resumption of p.o. diet. The patient and family were educated on results and recommendations and a written copy was provided for education of long-term staff. Thank you very much for this referral. Should you have any questions regarding this patient, please contact the speech pathologist at [phone]. MARYLOU YOO CM:PROCNOTE:PROCEDURE NOTE [id number] MARYLOU YOO
--- NOTE | ~2016-11-30 | SLPPOC ---
[place], [place] [employer] PLAN OF CARE NAME: SIRIA BOGGS SR UNIT #: [id number] ROOM: DOCTOR: TRISTAN RAMSEY FACP, MD Speech Language Pathology Plan of Care Page 1 1 (Initial Evaluation) of Patient Name: SIRIA BOGGS Date: 11/30/2016 01:47 PM : 1925 SOC Date: 11/30/2016 [facility]: [facility] Provider #: [id number] Treating Clinician: DEJA Jimenes-ARMHOLE PRESSER Referring Physician: TRISTAN SORIA Medicare #: [id number] Visits From SOC: 1 Onset Date Description Code Primary Diagnosis: 11/30/2016 DYS.PHAGIA DYSPHAGIA Subjective Comments: Initial evaluation created to initiate the electronic medical record. Please see [employer] for details. Initial Level Goals Functional Limitation Reporting Swallowing G8996 - Swallowing functional limitation, current status at therapy episode outset and at reporting intervals Current Status: CI - At least 1 percent but less than 20 percent impaired, limited or restricted G8997 - Swallowing functional limitation, projected goal status, at therapy episode outset, at reporting intervals, and at discharge or to end reporting Goal Status: CI - At least 1 percent but less than 20 percent impaired, limited or restricted G8998 - Swallowing functional limitation, discharge status, at discharge from therapy or to end reporting Discharge Status: CI - At least 1 percent but less than 20 percent impaired, limited or restricted 11/30/2016 1:49:16 PM TRISTAN SORIA Date/Time CONCHA Jimenes Date I certify the need for these services furnished under this plan of treatment while under my care. State License #: [id number] CM:SLPPOC 1353 1353 [facility]
--- NOTE | ~2016-11-30 | SLPPN ---
[place], [place] [employer] PROGRESS NOTE NAME: SIRIA BOGGS SR UNIT #: [id number] ROOM: DOCTOR: OLAMIDE SORIA MD,TRISTAN Speech Language Pathology Treatment Note Page 1 of 1 Patient Name: SIRIA BOGGS Date: 11/30/2016 01:49 PM : 1925 SOC Date: 11/30/2016 Provider: [facility] Provider #: [id number] Treating Clinician: DEJA Jimenes-ENERGY D[employer]IVATIVES TRADER Referring Physician: TRISTAN SORIA Onset Date Code Description Primary Diagnosis: 11/30/2016 DYS.PHAGIA DYSPHAGIA Time In: 12:45 PM Time Out: 01:45 PM [employer]ER Interventions and CPT Codes Consisted of: CPT Code Modifiers Minutes Units Laryngoscopy, flex or rigid 25504 60 1 Total Minutes: 60 Total Timed Minutes: 0 Total Untimed Minutes: 60 Total Units: 1 Total Timed Units: 0 Total Untimed Units: 1 11/30/2016 1:50:15 PM DEJA Jimenes-ENERGY [employer]IVATIVES TRADER Date/Time State License #: [id number] CM:CLAUDIO 1353 1353 [facility]
--- NOTE | ~2016-11-30 | SLPIE ---
[place], [place] [employer]GEM[employer] INITIAL EVALUATION NAME: SIRIA BOGGS SR UNIT #: [id number] ROOM: DOCTOR: TRISTAN RAMSEY FACP, MD Speech Language Pathology Initial Evaluation Page 1 1 of Patient Name: SIRIA BOGGS Date: 11/30/2016 01:47 PM : 1925 SOC Date: 11/30/2016 Provider: [facility] Provider #: [id number] Treating Clinician: DEJA Jimenes-MIKE Referring Physician: TRISTAN SORIA Patient Information Address: [address] [place] [address] [address] Physician: TRISTAN SORIA Physician #: City, [facility], Zip: [place], [place] [address] Occupation: Unknown # of Approved Visits: 0 Gender: Male [employer] 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 Please see [employer] for details. Clinical Findings Functional Goals Functional Limitation Reporting Swallowing G8996 - Swallowing functional limitation, current status at therapy episode outset and at reporting intervals Current Status: CI - At least 1 percent but less than 20 percent impaired, limited or restricted G8997 - Swallowing functional limitation, projected goal status, at therapy episode outset, at reporting intervals, and at discharge or to end reporting Goal Status: CI - At least 1 percent but less than 20 percent impaired, limited or restricted G8998 - Swallowing functional limitation, discharge status, at discharge from therapy or to end reporting Discharge Status: CI - At least 1 percent but less than 20 percent impaired, limited or restricted 11/30/2016 1:49:16 PM DEJA Jimenes-MIKE Date/Time [place], [place] [employer] INITIAL EVALUATION NAME: SIRIA BOGGS SR UNIT #: [id number] ROOM: DOCTOR: TRISTAN RAMSEY FACP, MD [facility] License #: [id number] CM:CARLOS 1353 1353 [facility]
== END | disposition home or self-care (01) ==
LOC: RAD/SH 11-21 13:00
DX: Z43.1 Encounter for attention to gastrostomy (principal); S72.14 Intertrochanteric fracture of femur; R13.10 Dysphagia, unspecified; J45.998 Other asthma; J96.01 Acute respiratory failure with hypoxia; R79.1 Abnormal coagulation profile; I13.2 Hypertensive heart and chronic kidney disease with heart failure and with stage 5 chronic kidney disease, or end stage renal disease; I50.32 Chronic diastolic (congestive) heart failure; N18.6 End stage renal disease; I25.10 Atherosclerotic heart disease of native coronary artery without angina pectoris; J91.8 Pleural effusion in other conditions classified elsewhere; D63.1 Anemia in chronic kidney disease; K21.9 Gastro-esophageal reflux disease without esophagitis; M10.9 Gout, unspecified; M19.90 Unspecified osteoarthritis, unspecified site; I34.0 Nonrheumatic mitral (valve) insufficiency; I48.91 Unspecified atrial fibrillation; M25.9 Joint disorder, unspecified; D72.810 Lymphocytopenia; L11.1 Transient acantholytic dermatosis [Grover]; X58.XXXS Exposure to other specified factors, sequela